=== PATIENT | female | born 1940 | race Caucasian/White ===

== ENCOUNTER → 2019-10-03 13:18 | Outpatient (CLI) | payer MEDICARE, SELFPAY ==
--- NOTE | ~2019-10-03 | CT_ITS ---
EXAMINATION: CT chest wo con DATE: 10/03/2019 13:50 INDICATION: Solitary pulmonary nodule, prior smoker TECHNIQUE: Computed tomography (CT) of the chest was performed without intravenous contrast. The dose -length product (DLP) was 480.09 mGy-cm. Automated exposure control and iterative reconstruction tech [employer] were employed. COMPARISON: 12/03/2015 FINDINGS: There is moderate emphysema. Stable pulmonary nodules are seen which measure up to 5 mm. No new or suspicious pulmonary nodule is identified. There is mild dependent atelectasis. No focal airs pace opacities are identified. There is no pleural effusion or pneumothorax. Calcified bilateral eliseo st implants are noted. No pathologically enlarged thoracic lymph nodes are identified. The heart size is normal. Calcified coronary artery atherosclerosis is noted. Cysts of the liver measure up to 2.1 cm. There is moderate thoracic spondylosis. IMPRESSION: 1. Stable pulmonary nodules, consistent with old granulomatous disease. 2. Moderate emphysema. Reviewed, dictated and finalized at location A. KER STOCKER
== END ==
PROVIDERS: PCP Internal Medicine; Visit Provider Internal Medicine
DX: J43.9 Emphysema, unspecified (principal); R91.8 Other nonspecific abnormal finding of lung field
CPT/HCPCS: 71250

== ENCOUNTER 2019-10-23 14:46 | Emergency (ER) | payer MEDICARE, SELFPAY ==
--- NOTE | ~2019-10-23 | CT_ITS ---
EXAMINATION: CT abdomen pelvis w con EXAM DATE: 10/23/2019 18:13 INDICATION: Nausea and vomiting with elevated lipase. TECHNIQUE: Spiral CT of the abdomen and pelvis was performed following intravenous injection of 100 m L Omnipaque 350. Axial, coronal and sagittal images were reviewed. The dose-length product (DLP) fo r this examination was 746.90 mGy-cm. The exposure was tailored according to patient size (auto mA e xposure control), and iterative reconstruction (ASIR) was used as additional dose reduction technique . There is no prior study for comparison. FINDINGS: The largest liver cyst is in the left liver lobe medial segment, measures 2.3 cm. The sple en, pancreas, and adrenal glands are unremarkable. Gallbladder is unremarkable. No biliary obstruct ion. Portal and splenic veins are patent. Kidneys enhance symmetrically. There is no hydronephrosi s. There are small renal cysts bilaterally. The uterus is not identified and has likely been surgica lly resected. The bladder is unremarkable. There is no retroperitoneal or pelvic lymphadenopathy. There is mild to moderate scattered arteriosclerotic disease. The appendix is not positively visualized. There is no pericecal inflammatory change to suggest appe ndicitis. The stomach and small bowel are unremarkable. There is expected amount of colonic stool. No free intraperitoneal gas. The heart is normal in size. There are no pericardial or pleural e ffusions. Mild basilar bronchiectasis and bilateral subsegmental atelectasis. Bilateral breast impla nts with capsular calcification, retraction. There are no osteoblastic or osteolytic lesions identif ied. IMPRESSION: 1. No acute intra-abdominal findings. Reviewed, dictated and finalized at location A. L SHOP SUPERVISOR
[2019-10-23 14:51] VITALS: BP 121/60; PULSE 94; RESP 18; TEMP 37.1; O2SAT 90
--- NOTE | 2019-10-23 14:57 | ED.NAVMDI ---
HPI - Nausea/Vomiting/Diarrhea General Chief complaint: Nausea/Vomiting/Diarrhea Stated complaint: n/v Time Seen by Provider: 10/23/19 14:53 Source: patient and RN notes reviewed Mode of arrival: ambulatory Limitations: dementia History of Present Illness HPI Narrative: A 79 y/o female presents to the ED with N/V beginning this morning. She states that she has had 2 episodes of vomiting and that has been having some mild diarrhea and nasal congestion. She denies any ABD pain, fevers, chills, SOB, CP, cough, or GONZALEZ. MD elicited complaint: nausea, vomiting (x2) and diarrhea (mild) Onset (ago): hour(s) (this morning) Associated abdominal pain: No Location of pain: none Associated symptoms: other (nasal congestion) Related Data Home Medications Medication Instructions Recorded Confirmed fexofenadine 60 mg-pseudoephedrine 1 tablet PO Q12H PRN 09/25/19 ER 120 mg tablet,ext.release,12 hr fluticasone propionate 50 2 spray NASAL DAILY 09/25/19 mcg/actuation nasal spray,suspension levothyroxine 75 mcg tablet 75 mcg PO DAILY 09/25/19 triamcinolone acetonide 0.1 % 1 applic TOPICAL BID 09/25/19 topical cream Allergies Allergy/AdvReac Type Severity Reaction Status Date / Time KYLAH Inhibitors Allergy Unknown Cough Verified 10/23/19 15:10 Review of Systems Review of Systems: All systems reviewed & are unremarkable except as noted in HPI and below Constitutional: Constitutional: Denies chills and Denies fever(s) ENT: Reports nasal congestion Cardiovascular: Cardiovascular: Denies chest pain Respiratory: Respiratory: Denies cough and Denies dyspnea Gastrointestinal: Gastrointestinal: Denies abdominal pain, Reports diarrhea ( mild), Reports nausea and Reports vomiting (x2) Neurologic: Denies headache(s) [facility] Past Medical History Medical History (Updated 10/23/19 @ 18:36 by Livan Capellan MD) Benign essential hypertension BMI 35.0-35.9,adult Chronic sinusitis Cognitive dysfunction Elevated homocysteine H/O: HTN (hypertension) Hearing loss Hyperlipidemia Hypothyroidism (acquired) Left-sided thoracic back pain Lung nodule On intermediate drug therapy Osteoporosis Pre-diabetes Vitamin D deficiency Surgical History Surgical History Surgical history unknown Family History Family History Sibling Patient's sister is in good health Patient's brother is in good health Father Family history of cardiovascular disease Acute myocardial infarction Mother Family history of malignant neoplasm Family history of malignant neoplasm of breast in first degree relative Social History Social History Smoking status: Former smoker Smoking end date: 1938 Alcohol intake: never Gender identity (if verbalized by the patient): Female Exam Const: General: healthy appearing, no acute distress and other (elderly and frail) HENMT: Mouth: Yes lip normal and Yes moist mucous membranes Eyes: Conjunctivae: conjunctivae normal Pupils: Equal, round and reactive pupils present Resp: Effort & Inspection: normal respiratory effort Auscultation: clear to auscultation bilaterally Cardio: Rate: regular rate Rhythm: regular rhythm Heart sounds: no murmurs GI: GI Palp: Yes Soft to palpation and No Tenderness to palpation present (GI) Auscultation: normal bowel sounds Back/Spine/Pelvis: Other: Full ROM. Skin: General skin exam: normal color, dry skin and other (warm) Neuro: General: patient oriented x3 (alert) Speech: normal speech Extrem: General: full ROM Psych: Mental Status: mental status grossly normal Affect: normal affect Course Vital Signs Vital signs: Vital Signs Temperature 37.1 C 10/23/19 14:51 Pulse Rate 94 10/23/19 14:51 Respiratory Rate 18 10/23/19 14:51 Blood Pressure 121/60 10/23/19 14:51 Pulse Oximetry 90 10/23/19 14:5
[2019-10-23] MEDS: ONDANSETRON INJ 4 MG/2 ML VIAL IV PUSH (15:13)
[2019-10-23] MEDS: SODIUM CHLORIDE 0.9% IV 500 ML 999 ML IV CONT (15:13)
[2019-10-23 15:39] LABS: Basophils Percent Auto 0.5 % (0.2-1.2); Eosinophils Percent Auto 0.3 % (0-4.4); Hematocrit 44.9 % (37.0-47.0); Hemoglobin 14.6 g/dL (12.0-15.0); Immature Granulocyte Absolute 0.03 K/mm3 (0.00-0.031); Immature Granulocyte Percent A 0.5 % (0-0.5); Lymphocytes Absolute Auto 1.52 K/mm3 (0.9-3.2); Lymphocytes Percent Auto 25.2 % (18.3-44.2); Mean Corpuscular HGB Conc 32.5 g/dl (32-36); Mean Corpuscular Hemoglobin 30.6 pg (26-34); Mean Corpuscular Volume 94.1 fl (80-100); Mean Platelet Volume 10.5 fl (7.4-10.4); Monocytes Absolute Auto 0.3 K/mm3 (0.1-0.6); Monocytes Percent Auto 5.6 % (2.6-8.5); Neutrophils Absolute Auto 4.1 K/mm3 (1.3-6.7); Neutrophils Percent Auto 67.9 % (45.5-73.1); Platelet Count Result 182 k/mm3 (150-375); Red Blood Count 4.77 M/mm3 (4.2-5.4); Red Cell Distribution Width 12.7 % (11.5-14.5)
[2019-10-23 16:16] VITALS: BP 124/74; BP 139/80; BP 144/95; PULSE 79; PULSE 89; PULSE 96
[2019-10-23 16:17] LABS: Alanine Aminotransferase 24 U/L (4-35); Alkaline Phosphatase 68 U/L (38-126); Aspartate Amino Transferase 40 U/L (14-36); Bilirubin,Total 0.6 mg/dL (0.2-1.3); Blood Urea Nitrogen 19 mg/dL (7-17); Calcium 8.2 mg/dL (8.4-10.2); Carbon Dioxide 24 mmol/L (22-30); Chloride 104 mmol/L (98-107); Estimated CRCL calculation 64 ml/min; Estimated Glomerular Filt Rate > 60; Glucose 124 mg/dL (65-105); Lipase 956 U/L (23-300); Potassium 3.6 mmol/L (3.4-5.0); Sodium 137 mmol/L (137-145)
[2019-10-23 16:55] LABS: Add Urine Microscopic? YES; Appearance Urine Clear (Clear); Bacteria Urine Trace /hpf; Bilirubin Urine Negative (Negative); Blood Urine 2+ (Negative); Color Urine Yellow (Yellow); Glucose Urine UA Negative (Negative); Ketones Urine Trace mg/dL (Negative); Leukocyte Esterase Ur Negative LEU/UL (Negative); Mucus Urine Rare /lpf; Nitrate Urine Negative (Negative); Protein Urine Negative (Negative); Specific Grav Ur 1.016 (1.001-1.035); Squamous Epithelial Cell Urine Rare /hpf (Few); Urobilinogen Urine Negative mg/dL (<2.0); WBC Urine 0-3 /hpf
[2019-10-23 16:59] VITALS: BP 140/77; PULSE 83; RESP 16; O2SAT 92
[2019-10-23 17:55] VITALS: BP 140/75; PULSE 95; RESP 16; O2SAT 92
--- NOTE | 2019-10-23 18:46 | PC.NURSE ---
md aware of frequent low 02 sats below 90%. md declines to use o2 nasal cannula at this time. when awake pt has o2 sats 90-95%
[2019-10-23 19:13] VITALS: BP 126/82; PULSE 99; RESP 16; TEMP 37.2; O2SAT 90
== END 2019-10-23 19:31 | disposition home or self-care (01) ==
PROVIDERS: Emergency Provider Emergency Medicine; PCP Internal Medicine
DX: R11.2 Nausea with vomiting, unspecified (principal); I10 Essential (primary) hypertension; E78.5 Hyperlipidemia, unspecified; E03.9 Hypothyroidism, unspecified; M81.0 Age-related osteoporosis without current pathological fracture; R73.03 Prediabetes; E55.9 Vitamin D deficiency, unspecified
CPT/HCPCS: 36415; 74177; 80053; 81001; 83690; 85025; 96361; 96365; 96375; 99284; J0131; J2405; J7040; Q9967

== ENCOUNTER 2019-10-24 12:24 | Emergency (ER) | payer MEDICARE, SELFPAY ==
[2019-10-24 14:23] VITALS: BP 130/71; PULSE 80; RESP 20; TEMP 37.7; O2SAT 97
[2019-10-24 14:45] LABS: Basophils Percent Auto 0.3 % (0.2-1.2); Eosinophils Percent Auto 0.2 % (0-4.4); Hemoglobin 13.9 g/dL (12.0-15.0); Immature Granulocyte Absolute 0.03 K/mm3 (0.00-0.031); Immature Granulocyte Percent A 0.3 % (0-0.5); Lymphocytes Absolute Auto 1.43 K/mm3 (0.9-3.2); Lymphocytes Percent Auto 16.5 % (18.3-44.2); Mean Corpuscular HGB Conc 33.1 g/dl (32-36); Mean Corpuscular Hemoglobin 30.5 pg (26-34); Mean Corpuscular Volume 92.1 fl (80-100); Monocytes Absolute Auto 0.8 K/mm3 (0.1-0.6); Monocytes Percent Auto 9.6 % (2.6-8.5); Neutrophils Absolute Auto 6.3 K/mm3 (1.3-6.7); Neutrophils Percent Auto 73.1 % (45.5-73.1); Platelet Count Result 193 k/mm3 (150-375); Red Blood Count 4.56 M/mm3 (4.2-5.4); Red Cell Distribution Width 12.6 % (11.5-14.5); White Blood Count 8.7 K/mm3 (4.5-10.0)
[2019-10-24 14:54] LABS: Alanine Aminotransferase 25 U/L (4-35); Albumin Level 4.1 g/dL (3.5-5.1); Alkaline Phosphatase 70 U/L (38-126); Aspartate Amino Transferase 42 U/L (14-36); Bilirubin,Total 0.6 mg/dL (0.2-1.3); Blood Urea Nitrogen 17 mg/dL (7-17); Calcium 8.9 mg/dL (8.4-10.2); Carbon Dioxide 27 mmol/L (22-30); Chloride 97 mmol/L (98-107); Estimated CRCL calculation 47 ml/min; Estimated Glomerular Filt Rate > 60; Glucose 111 mg/dL (65-105); Lipase 137 U/L (23-300); Potassium 4.1 mmol/L (3.4-5.0); Sodium 136 mmol/L (137-145)
--- NOTE | 2019-10-24 15:40 | ED.GENADULT ---
HPI - General Adult General Chief complaint: Weakness Stated complaint: gen weakness/n Time Seen by Provider: 10/24/19 15:21 Source: patient and old records reviewed Mode of arrival: ambulatory Limitations: no limitations History of Present Illness HPI narrative: Patient is an 79-year-old female who presents to emergency department for evaluation after being instructed to come to the emergency department by primary care patient was evaluated yesterday for nausea and vomiting which has improved since discharge noting that she had 1 small episode of emesis today patient on arrival to emergency department denies any pain or complaints patient presents with family patient was found to have incidentally elevated faded lipase had CAT scan and was given a liter of fluid yesterday patient with normalized blood work today currently denying any nausea or vomiting resting comfortably in the room in no distress Related Data Home Medications Medication Instructions Recorded Confirmed levothyroxine 75 mcg tablet 75 mcg PO DAILY 09/25/19 donepezil 2.5 mg PO HS 10/24/19 10/24/19 Allergies Allergy/AdvReac Type Severity Reaction Status Date / Time KYLAH Inhibitors Allergy Unknown Cough Verified 10/24/19 15:49 Review of Systems Review of Systems: All systems reviewed & are unremarkable except as noted in HPI and below PMFSH Past Medical History Medical History Benign essential hypertension BMI 35.0-35.9,adult Chronic sinusitis Cognitive dysfunction Elevated homocysteine H/O: HTN (hypertension) Hearing loss Hyperlipidemia Hypothyroidism (acquired) Left-sided thoracic back pain Lung nodule On terminologist drug therapy Osteoporosis Pre-diabetes Vitamin D deficiency Surgical History Surgical History Surgical history unknown Social History Social History Smoking status: Former smoker Smoking end date: 1938 Alcohol intake: never Gender identity (if verbalized by the patient): Female Exam Narrative: Exam Narrative: GENERAL: Well-appearing, well-nourished, and in no acute distress. HEAD: Normocephalic, atraumatic. EYES: PERRLA and EOMI. ENT: Nares clear, no rhinorrhea or epistaxis. Mucous membranes moist. Oropharynx without tonsillar hypertrophy exudate or other lesions. CHEST: Clear to auscultation. No respiratory distress. No wheezes rales or rhonchi HEART: Regular rate and rhythm. No murmur heard. Normal peripheral pulses. ABDOMEN: Soft, nontender, nondistended EXTREMITIES: Normal range of motion. No edema. SKIN: Warm, dry, no rash. NEURO: No focal deficits. Alert and oriented x3. PSYCH: Normal mood and affect. Course Course Emergency Course: Patient in the room in no distress aware of case findings treatment plan and diagnosis agreeing to follow-up as directed or to return if symptoms worsen or concerns Vital Signs Vital signs: Vital Signs Temperature 99.9 F H 10/24/19 14:23 Pulse Rate 80 10/24/19 14:23 Respiratory Rate 20 10/24/19 14:23 Blood Pressure 130/71 10/24/19 14:23 Pulse Oximetry 97 10/24/19 14:23 Temperature 99.9 F H 10/24/19 14:23 Pulse Rate 90 10/24/19 15:48 Respiratory Rate 20 10/24/19 14:23 Blood Pressure 144/79 H 10/24/19 15:48 Pulse Oximetry 97 10/24/19 14:23 Medical Decision Making MDM Narrative Medical decision making narrative: Patient in the room in no distress was hydrated resting comfortably in the room no complaints nontender abdomen was hydrated and felt appropriate for outpatient reevaluation patient prefers to go home will follow with primary care and was provided with reasons to return Vital Signs Vital Signs: Vital Signs Temperature 99.9 F H 10/24/19 14:23 Pulse Rate 80 10/24/19 14:23 Respiratory Rate 20 10/24/19 14:23 Blood Pressure 130/71 10/24/19 14:23 P
[2019-10-24 15:48] VITALS: BP 130/78; BP 133/72; BP 144/79; PULSE 85; PULSE 89; PULSE 90
[2019-10-24] MEDS: SODIUM CHLORIDE 0.9% IV 1,000 ML 999 ML IV CONT (16:21)
[2019-10-24] MEDS: FAMOTIDINE 20 MG/2 ML VIAL IV PUSH (16:22)
[2019-10-24 16:43] LABS: Add Urine Microscopic? YES; Appearance Urine Clear (Clear); Bilirubin Urine Negative (Negative); Blood Urine 1+ (Negative); Color Urine Straw (Yellow); Glucose Urine UA Negative (Negative); Ketones Urine Trace mg/dL (Negative); Leukocyte Esterase Ur Negative LEU/UL (Negative); Nitrate Urine Negative (Negative); Protein Urine Negative (Negative); Specific Grav Ur 1.016 (1.001-1.035); Squamous Epithelial Cell Urine Rare /hpf (Few); Urobilinogen Urine Negative mg/dL (<2.0); WBC Urine 0-3 /hpf
== END 2019-10-24 17:55 | disposition home or self-care (01) ==
PROVIDERS: Emergency Medicine; Emergency Provider Emergency Medicine; PCP Internal Medicine
DX: R11.2 Nausea with vomiting, unspecified (principal); I10 Essential (primary) hypertension; E78.00 Pure hypercholesterolemia, unspecified; E03.9 Hypothyroidism, unspecified; M81.0 Age-related osteoporosis without current pathological fracture; R73.03 Prediabetes; E55.9 Vitamin D deficiency, unspecified; Z87.891 Personal history of nicotine dependence
CPT/HCPCS: 36415; 80053; 81001; 83690; 85025; 87804; 96361; 96374; 99284; J7030

== ENCOUNTER 2020-03-29 04:04 | Emergency (ER) | payer MEDICARE, SELFPAY ==
--- NOTE | 2020-03-29 | ECG_ITS ---
Measurements Intervals [place] Rate: 100 P: 53 WI: 154 QRS: -11 QRSD: 94 T: 38 QT: 366 QTc: 474 Interpretive Statements SINUS TACHYCARDIA FREQUENT VENTRICULAR PREMATURE COMPLEXES INCOMPLETE RIGHT BUNDLE BRANCH BLOCK BASELINE ARTIFACT- I, III, AVR, AVL, AVF, V4 ABNORMAL ECG Electronically Signed On 04-02-2020 13:02:06 CDT by Florian Muhammad D.O.
--- NOTE | ~2020-03-29 | CT_ITS ---
EXAMINATION: CT brain wo con DATE: 03/29/2020 04:34 INDICATION: Dizziness and confusion TECHNIQUE: Computed tomography (CT) of the head was performed without intravenous contrast. Sagittal and coronal reconstructions were performed. Automated exposure control and iterative reconstruction t echnique were employed. The dose-length product was 605.33 mGy-cm. COMPARISON: head CT dated 09/02/2016 FINDINGS: No acute intracranial hemorrhage, acute infarction or abnormal extra axial fluid collection. There is mild scattered white matter hypoattenuation consistent with chronic small vessel ischemic disease. S ymmetric prominence of the sulci consistent with mild age-appropriate diffuse cerebral volume loss. V entricles are normal and symmetric. No mass/mass effect. Changes of bilateral intraocular lens replac ement. The orbits, paranasal sinuses and mastoid air cells are normal. Intracranial calcified cerebra l atherosclerosis is noted. IMPRESSION: 1. No acute intracranial process. 2. Age-related changes including mild diffuse volume loss and mild scattered white matter hypoattenua tion consistent with chronic small vessel ischemic disease. Reviewed, dictated and finalized at location A. IMPRESSION: 1. No acute intracranial process. 2. Age-related changes including mild diffuse volume loss and mild scattered wh ite matter hypoattenuation consistent with chronic small vessel ischemic diseas e.
[2020-03-29 04:05] VITALS: BP 161/77; PULSE 99; RESP 20; TEMP 37.1; O2SAT 100
--- NOTE | 2020-03-29 04:18 | ED.DIZZY ---
HPI - Dizziness General Chief Complaint: Dizziness Stated Complaint: dizzy History of Present Illness HPI Narrative: Patient presents with dizziness last night and then when she woke up just now. She arrives via EMS. She said the dizziness is gone here. She dropped her little poodle off with the neighbors before coming. She is disoriented thinking it is 2018. She lives alone. She takes care of her own bills. She has no pain. She has not been sick. She takes medication for blood pressure. MD elicited complaint: dizziness Onset (ago): day(s) Timing: gradual onset and awoke with symptoms Severity: mild Exacerbating factors: nothing Relieving factors: other (Getting out of the house) Associated symptoms: denies other symptoms Related Data Home Medications Medication Instructions Recorded Confirmed levothyroxine 75 mcg tablet 75 mcg PO DAILY 09/25/19 10/26/19 Allergies Allergy/AdvReac Type Severity Reaction Status Date / Time KYLAH Inhibitors Allergy Unknown Cough Verified 03/29/20 04:17 Review of Systems Review of Systems: Narrative: CONSTITUTIONAL: Denies fever, chills, or sweats. EYES: Denies visual changes, redness, or discharge. ENT: Denies rhinorrhea, congestion, sore throat, or otalgia. CARDIOVASCULAR: Denies chest pain, palpitations, or edema. RESPIRATORY: Denies cough or dyspnea. GASTROINTESTINAL: Denies abdominal pain, nausea, vomiting, or diarrhea. GENITOURINARY: Denies dysuria or hematuria. SKIN: Denies rash or itching. MUSCULOSKELETAL: Denies back pain, joint pain, or myalgia. NEUROLOGIC: Denies headache, numbness, or weakness. Dizziness is resolved here. All systems reviewed & are unremarkable except as noted in HPI and below [facility] Past Medical History Medical History Benign essential hypertension BMI 35.0-35.9,adult Chronic sinusitis Cognitive dysfunction Dyspnea on exertion Elevated homocysteine H/O: HTN (hypertension) Hearing loss Hyperlipidemia Hypothyroidism (acquired) Left-sided thoracic back pain Lung nodule On half-way drug therapy Osteoporosis Pre-diabetes Vitamin D deficiency Surgical History Surgical History Surgical history unknown Social History Social History Smoking packs per day: 1 Smoking cigarettes per day: 20.0 Years smoked: 30 Smoking pack-years: 30.00 Smoking status: Former smoker Alcohol intake: never Gender identity (if verbalized by the patient): Female Exam Narrative: Exam Narrative: GENERAL: Well-appearing, well-nourished, and in no acute distress. HEAD: Normocephalic, atraumatic. EYES: PERRLA and EOMI. ENT: Nares clear, no rhinorrhea or epistaxis. Mucous membranes moist. NECK: Supple. CHEST: Clear to auscultation. No respiratory distress. Breast implants HEART: Regular rate and rhythm. No murmur heard. Normal peripheral pulses. ABDOMEN: Soft, nontender, nondistended, normal active bowel sounds. EXTREMITIES: Normal range of motion. No edema. SKIN: Warm, dry, no rash. NEURO: No focal deficits. Alert and oriented x2. PSYCH: Normal mood and affect. Good humor Course Vital Signs Vital signs: Vital Signs Temperature 98.7 F 03/29/20 04:05 Pulse Rate 99 03/29/20 04:05 Respiratory Rate 20 03/29/20 04:05 Blood Pressure 161/77 H 03/29/20 04:05 Pulse Oximetry 100 03/29/20 04:05 Temperature 98.7 F 03/29/20 04:05 Pulse Rate 94 03/29/20 05:54 Respiratory Rate 20 03/29/20 05:54 Blood Pressure 173/92 H 03/29/20 05:54 Pulse Oximetry 98 03/29/20 05:54 MDM - Dizziness Medical Records Attestation: I reviewed the patient's medical records. Lab Data Attestation: I reviewed the patient's lab results. Result diagrams: 03/29/20 04:56 03/29/20 04:56 Labs: Lab Results 03/29/20 03/29/20 03/29/20 Range/Units 04:56 04
[2020-03-29 04:47] VITALS: BP 173/92; PULSE 89; RESP 20; O2SAT 98
--- NOTE | 2020-03-29 05:01 | PC.NURSE ---
PT AMBULATED TO BATHROOM WITH STEADY GAIT. DENIES DIZZINESS
[2020-03-29 05:04] LABS: Basophils Percent Auto 0.6 % (0.2-1.2); Eosinophils Absolute Auto 0.2 K/mm3 (0-0.3); Eosinophils Percent Auto 3.1 % (0-4.4); Hematocrit 44.5 % (37.0-47.0); Hemoglobin 14.6 g/dL (12.0-15.0); Immature Granulocyte Absolute 0.02 K/mm3 (0.00-0.031); Immature Granulocyte Percent A 0.3 % (0-0.5); Lymphocytes Absolute Auto 1.44 K/mm3 (0.9-3.2); Lymphocytes Percent Auto 22.1 % (18.3-44.2); Mean Corpuscular HGB Conc 32.8 g/dl (32-36); Mean Corpuscular Hemoglobin 31.1 pg (26-34); Mean Corpuscular Volume 94.9 fl (80-100); Mean Platelet Volume 10.6 fl (7.4-10.4); Monocytes Absolute Auto 0.7 K/mm3 (0.1-0.6); Monocytes Percent Auto 10.3 % (2.6-8.5); Neutrophils Absolute Auto 4.2 K/mm3 (1.3-6.7); Neutrophils Percent Auto 63.6 % (45.5-73.1); Platelet Count Result 150 k/mm3 (150-375); Red Blood Count 4.69 M/mm3 (4.2-5.4); Red Cell Distribution Width 12.9 % (11.5-14.5); White Blood Count 6.5 K/mm3 (4.5-10.0)
[2020-03-29 05:16] LABS: Alanine Aminotransferase 26 U/L (4-35); Albumin Level 4.2 g/dL (3.5-5.1); Alkaline Phosphatase 85 U/L (38-126); Anion Gap 7 mmol/L (8-16); Aspartate Amino Transferase 48 U/L (14-36); Bilirubin,Total 0.6 mg/dL (0.2-1.3); Blood Urea Nitrogen 25 mg/dL (7-17); Calcium 8.9 mg/dL (8.4-10.2); Carbon Dioxide 24 mmol/L (22-30); Chloride 107 mmol/L (98-107); Estimated Glomerular Filt Rate 53; Glucose 110 mg/dL (65-105); Potassium 4.1 mmol/L (3.4-5.0); Sodium 138 mmol/L (137-145)
[2020-03-29 05:19] LABS: Add Urine Microscopic? YES; Appearance Urine Clear (Clear); Bilirubin Urine Negative (Negative); Blood Urine 1+ (Negative); Color Urine Yellow (Yellow); Glucose Urine UA Negative (Negative); Ketones Urine Negative (Negative); Leukocyte Esterase Ur Negative LEU/UL (Negative); Nitrate Urine Negative (Negative); Protein Urine Negative (Negative); Specific Grav Ur 1.018 (1.001-1.035); Urobilinogen Urine Negative mg/dL (<2.0); WBC Urine 0-3 /hpf
[2020-03-29 05:31] LABS: Amphetamine Screen Urine Negative (Negative); Barbiturate Screen Urine Negative (Negative); Benzodiazepines Screen Urine Negative (Negative); Cannabinoid Screen Urine Negative (Negative); Cocaine Screen Urine Negative (Negative); Methadone Screen Urine Negative (Negative); Opiate Screen Urine Negative (Negative); Phencyclidine Screen Urine Negative (Negative)
[2020-03-29 05:37] VITALS: BP 173/92; PULSE 96; RESP 20; O2SAT 98
[2020-03-29 05:54] VITALS: BP 173/92; PULSE 94; RESP 20; O2SAT 98
== END 2020-03-29 05:57 | disposition home or self-care (01) ==
PROVIDERS: Emergency Provider Emergency Medicine; PCP Internal Medicine
DX: R42 Dizziness and giddiness (principal); R41.0 Disorientation, unspecified; I10 Essential (primary) hypertension; E78.5 Hyperlipidemia, unspecified; E03.9 Hypothyroidism, unspecified; M81.0 Age-related osteoporosis without current pathological fracture; E55.9 Vitamin D deficiency, unspecified; R73.03 Prediabetes; Z79.899 Other long term (current) drug therapy
CPT/HCPCS: 36415; 70450; 80053; 80307; 81001; 85025; 93005; 99284

== ENCOUNTER 2020-04-01 14:05 | Outpatient (CLI) | payer MEDICARE, SELFPAY ==
[2020-04-01 15:20] LABS: Alanine Aminotransferase 25 U/L (4-35); Albumin Level 4.1 g/dL (3.5-5.1); Alkaline Phosphatase 72 U/L (38-126); Anion Gap 7 mmol/L (8-16); Aspartate Amino Transferase 47 U/L (14-36); Bilirubin,Total 0.3 mg/dL (0.2-1.3); Blood Urea Nitrogen 23 mg/dL (7-17); Calcium 9.2 mg/dL (8.4-10.2); Carbon Dioxide 24 mmol/L (22-30); Chloride 106 mmol/L (98-107); Estimated Glomerular Filt Rate 53; Glucose 90 mg/dL (65-105); Potassium 4.4 mmol/L (3.4-5.0); Sodium 137 mmol/L (137-145)
[2020-04-01 15:24] LABS: Hemoglobin A1C 5.8 % (<5.7)
[2020-04-01 15:54] LABS: Free T4 Free Thyroxine 1.22 ng/mL (0.78-2.19)
[2020-04-01 16:24] LABS: Folic Acid 12.3 ng/mL (2.76->20)
[2020-04-04 03:49] LABS: Methylmalonic Acid 168 nmol/L (87-318)
== END 2020-04-01 14:06 | disposition home or self-care (01) ==
PROVIDERS: PCP Internal Medicine; Visit Provider Internal Medicine
DX: E78.5 Hyperlipidemia, unspecified (principal); I10 Essential (primary) hypertension; Z79.899 Other long term (current) drug therapy
CPT/HCPCS: 36415; 80053; 82607; 82746; 83036; 83921; 84439; 84443

== ENCOUNTER 2020-12-17 16:18 | Outpatient (CLI) | payer MEDICARE, SELFPAY ==
[2020-12-17 16:47] LABS: Basophils Absolute Auto 0.1 K/mm3 (0.0-0.1); Eosinophils Absolute Auto 0.3 K/mm3 (0-0.3); Eosinophils Percent Auto 4.9 % (0-4.4); Hematocrit 44.5 % (37.0-47.0); Hemoglobin 14.6 g/dL (12.0-15.0); Immature Granulocyte Absolute 0.02 K/mm3 (0.00-0.031); Immature Granulocyte Percent A 0.3 % (0-0.5); Lymphocytes Absolute Auto 2.03 K/mm3 (0.9-3.2); Lymphocytes Percent Auto 34.4 % (18.3-44.2); Mean Corpuscular HGB Conc 32.8 g/dl (32-36); Mean Corpuscular Hemoglobin 30.8 pg (26-34); Mean Corpuscular Volume 93.9 fl (80-100); Mean Platelet Volume 9.4 fl (7.4-10.4); Monocytes Absolute Auto 0.7 K/mm3 (0.1-0.6); Monocytes Percent Auto 12.4 % (2.6-8.5); Neutrophils Absolute Auto 2.8 K/mm3 (1.3-6.7); Platelet Count Result 207 k/mm3 (150-375); Red Blood Count 4.74 M/mm3 (4.2-5.4); Red Cell Distribution Width 13.9 % (11.5-14.5); White Blood Count 5.9 K/mm3 (4.5-10.0)
[2020-12-17 16:59] LABS: Alanine Aminotransferase 31 U/L (4-35); Albumin Level 4.6 g/dL (3.5-5.1); Alkaline Phosphatase 114 U/L (38-126); Anion Gap 6 mmol/L (8-16); Aspartate Amino Transferase 51 U/L (14-36); Bilirubin,Total 0.3 mg/dL (0.2-1.3); Blood Urea Nitrogen 33 mg/dL (7-17); Calcium 9.5 mg/dL (8.4-10.2); Carbon Dioxide 28 mmol/L (22-30); Chloride 107 mmol/L (98-107); Cholesterol 208 mg/dL (0-200); Estimated Glomerular Filt Rate 60; Glucose 103 mg/dL (65-105); HDL Direct 81 mg/dL; Potassium 4.7 mmol/L (3.4-5.0); Sodium 141 mmol/L (137-145); Triglycerides 114 mg/dL (<150)
[2020-12-17 17:10] LABS: LDL Cholesterol Direct 121 mg/dL
[2020-12-17 17:40] LABS: Free T4 Free Thyroxine 1.09 ng/mL (0.78-2.19); Vitamin D 25 Hydroxy 39.9 ng/mL
[2020-12-17 18:04] LABS: Folic Acid 19.8 ng/mL (2.76->20)
[2020-12-18 21:52] LABS: Hemoglobin A1C 6.1 % (<5.7)
[2020-12-21 11:29] LABS: Vitamin B1 18 nmol/L (8-30)
[2020-12-23 05:02] LABS: Vitamin B6 55.3 ng/mL (2.1-21.7)
[2020-12-23 14:55] LABS: Vitamin B2 23.1 nmol/L (6.2-39.0)
== END 2020-12-17 16:19 | disposition home or self-care (01) ==
LOC: ANHLAB 16:24
PROVIDERS: PCP Internal Medicine; Visit Provider Internal Medicine
DX: F09 Unspecified mental disorder due to known physiological condition (principal); I10 Essential (primary) hypertension; R73.03 Prediabetes; Z79.899 Other long term (current) drug therapy; E78.2 Mixed hyperlipidemia; E03.9 Hypothyroidism, unspecified; E55.9 Vitamin D deficiency, unspecified
CPT/HCPCS: 36415; 80053; 80061; 82172; 82306; 82607; 82746; 83036; 84207; 84252; 84425; 84439; 84443; 85025

== ENCOUNTER 2021-06-03 11:09 | Outpatient (CLI) | payer MEDICARE, SELFPAY ==
[2021-06-03 11:56] LABS: Alanine Aminotransferase 28 U/L (4-35); Albumin Level 4.9 g/dL (3.5-5.1); Alkaline Phosphatase 71 U/L (38-126); Anion Gap 12 mmol/L (8-16); Aspartate Amino Transferase 50 U/L (14-36); Bilirubin,Total 1.3 mg/dL (0.2-1.3); Blood Urea Nitrogen 15 mg/dL (7-17); Calcium 9.4 mg/dL (8.4-10.2); Carbon Dioxide 21 mmol/L (22-30); Chloride 104 mmol/L (98-107); Cholesterol 224 mg/dL (0-200); Estimated Glomerular Filt Rate 60; Glucose 131 mg/dL (65-110); HDL Direct 78 mg/dL; Potassium 4.6 mmol/L (3.4-5.0); Sodium 137 mmol/L (137-145); Triglycerides 94 mg/dL (<150)
[2021-06-03 12:03] LABS: LDL Cholesterol Direct 130 mg/dL
[2021-06-03 16:27] LABS: Free T4 Free Thyroxine 1.15 ng/mL (0.78-2.19); Vitamin D 25 Hydroxy 40.2 ng/mL
== END 2021-06-03 11:10 | disposition home or self-care (01) ==
PROVIDERS: PCP Internal Medicine; Visit Provider Internal Medicine
DX: E55.9 Vitamin D deficiency, unspecified (principal); R73.03 Prediabetes; I10 Essential (primary) hypertension; E03.9 Hypothyroidism, unspecified; E78.2 Mixed hyperlipidemia
CPT/HCPCS: 36415; 80053; 80061; 82306; 83036; 84439; 84443

== ENCOUNTER 2021-09-01 14:44 | Outpatient (CLI) | payer MEDICARE, SELFPAY ==
--- NOTE | ~2021-09-01 | MR_ITS ---
EXAMINATION: MR brain/brain stem wo con DATE: 09/01/2021 16:02 INDICATION: Altered mental status, unspecified. Confusion. TECHNIQUE: Magnetic resonance imaging (MRI) of the brain and brainstem was performed without intraven ous contrast. Sequences included sagittal and axial T1-weighted FSE, axial diffusion-weighted FS EPI, axial T2*-weighted GRE, axial T2-weighted FLAIR Propeller, and axial T2-weighted Propeller. Apparent diffusion coefficient (ADC) maps were created. COMPARISON: Head CT 03/29/2020 FINDINGS: There are scattered areas of nonspecific increased T2-weighted signal intensity in the cere bral white matter, which is within normal limits for the patient's age. There is no intracranial hemo rrhage, acute infarction, or abnormal intracranial mass lesion. The ventricles are normal in size. Th ere is mild mucosal thickening in the paranasal sinuses. There are likely changes of ocular lens repl acement surgeries. The mastoid air cells are normal. IMPRESSION: 1. Normal aging brain. Reviewed, dictated and finalized at location B. T PROTECTION AGENT IMPRESSION: 1. Normal aging brain.
== END 2021-09-01 14:45 | disposition home or self-care (01) ==
PROVIDERS: PCP Internal Medicine; Visit Provider Internal Medicine
DX: R41.82 Altered mental status, unspecified (principal)
CPT/HCPCS: 70551

== ENCOUNTER 2021-11-03 08:24 | Observation (INO) | payer MEDICARE, SELFPAY ==
[2021-11-03] VITALS (24 sets, daily range): BP systolic 127–171; BP diastolic 70–109; PULSE 66–88; RESP 13–22; TEMP 35.9–36.9; O2SAT 92–100
--- NOTE | ~2021-11-03 | CT_ITS ---
EXAMINATION: CT chest abdomen pelvis w con DATE: 11/03/2021 09:35 INDICATION: Right chest pain. Right lower quadrant abdominal pain. TECHNIQUE: Computed tomography (CT) of the chest, abdomen, and pelvis was performed with 100 mL Omnip aque 350 intravenous contrast. Automated exposure control and iterative reconstruction technique were employed. The dose-length product was 1710.95 mGy-cm. COMPARISON: CT abdomen and pelvis 10/23/2019 FINDINGS: CHEST CT: The lungs demonstrate mild dependent atelectasis. There is septal thickening in the lungs, consistent with mild pulmonary edema. No pleural effusion. The heart size is normal. No pericardial effusion. T here are bilateral breast implants. There are acute fracture deformities of right fourth, fifth, sixt h, and seventh ribs. There are multiple chronic compression fractures in the spine. There is severe c ervical spondylosis and mild thoracic spondylosis. ABDOMEN/PELVIS CT: There are cysts in the liver measuring up to 20 mm. The gallbladder is normal. There is a 6 mm cyst i n the spleen. The pancreas and adrenal glands are normal. There are cysts in the kidneys measuring up to 1.8 cm on the left. There is a left inguinal hernia containing fat. There is diverticulosis of th e colon without evidence of diverticulitis. There are no dilated loops of bowel. The appendix is not visualized. There are no pathologically enlarged lymph nodes. There is no free intraperitoneal fluid. There is a benign bone island in right ilium. There is severe lower lumbar spondylosis. There are mu ltiple chronic compression fractures in the spine. IMPRESSION: 1. Acute fractures of right fourth-seventh ribs. 2. Mild pulmonary edema. Reviewed, dictated and finalized at location A.
--- NOTE | ~2021-11-03 | CT_ITS ---
EXAMINATION: CT brain wo con DATE: 11/03/2021 11:15 INDICATION: Confusion. Possible fall. Posterior neck pain. TECHNIQUE: Computed tomography (CT) of the head was performed without intravenous contrast. The dose- length product was 605.33 mGy-cm. Automated exposure control and iterative reconstruction technique w ere employed. COMPARISON: CT dated 03/29/2020 FINDINGS: There appears to be contrast within the intracranial vasculature. Correlate for recent prio r contrast administration. There is atherosclerosis. Brain parenchymal volume is normal for age. Ther e are scattered mild periventricular and subcortical white matter changes, most likely related to sma ll vessel ischemic disease (microangiopathy). No ventriculomegaly or midline shift. Basilar cisterns are patent. Paranasal sinuses and mastoids are pneumatized. No depressed skull fractures. No acute in tracranial hemorrhage, mass or mass effect. IMPRESSION: 1. No acute intracranial abnormality. Reviewed, dictated and finalized at location B.
--- NOTE | ~2021-11-03 | CT_ITS ---
EXAMINATION: CT cervical spine wo con DATE: 11/03/2021 11:15 INDICATION: Posterior neck pain. Fall. TECHNIQUE: Computed tomography (CT) of the cervical spine was performed without intravenous contrast. Automated exposure control and iterative reconstruction technique were employed. The dose-length pro duct was 409.83 mGy-cm. COMPARISON: Chest CT 11/03/2021 FINDINGS: There is 3 degrees levocurvature of cervical spine. Vertebral body heights are normal. Ther e is severely decreased disc height at C5-C6 and C6-C7 with endplate remodeling. The following disc l evels are specifically discussed: C2-C3: There is mild right and moderate left uncovertebral joint osteoarthritis. There is mild bilate ral facet joint osteoarthritis. There is no neural foraminal stenosis. There is no central canal sten osis. C3-C4: There is mild bilateral uncovertebral joint osteoarthritis. There is moderate bilateral facet joint osteoarthritis. There is no neural foraminal stenosis. There is no central canal stenosis. C4-C5: There is mild left uncovertebral joint osteoarthritis. There is severe bilateral facet joint o steoarthritis. There is mild left neural foraminal stenosis. There is mild central canal stenosis. C5-C6: There is moderate bilateral uncovertebral joint osteoarthritis. There is mild bilateral facet joint osteoarthritis. There is mild bilateral neural foraminal stenosis. There is mild central canal stenosis. C6-C7: There is moderate bilateral uncovertebral joint osteoarthritis. There is moderate bilateral fa cet joint osteoarthritis. There is mild left neural foraminal stenosis. There is mild central canal s tenosis. C7-T1: There is no uncovertebral joint osteoarthritis. There is mild right and moderate left facet elie int osteoarthritis. There is no neural foraminal stenosis. There is no central canal stenosis. IMPRESSION: 1. No fracture. 2. Severe cervical spondylosis. Reviewed, dictated and finalized at location A.
--- NOTE | 2021-11-03 08:32 | ECG_ITS ---
Measurements Intervals [place] Rate: 71 P: 55 HI: 161 QRS: -25 QRSD: 96 T: 20 QT: 399 QTc: 436 Interpretive Statements SINUS RHYTHM BORDERLINE LEFT AXIS DEVIATION [QRS AXIS < -20] ANTERIOR T-WAVE INVERSION, MORE NOTICEABLE THAN NOTED ON THE PRIOR EKG. PROBABLE FEMALE VARIANT, CANNOT RULE OUT ISCHEMIA COMPARED TO ECG 03/29/2020 04:13:12 THE FREQUENT PVCS HAVE RESOLVED Electronically Signed On 11-03-2021 18:32:39 CDT by Cindy Cartagena M.D.
[2021-11-03 08:38] LABS: Glucose Point of Care 134 mg/dl (65-105)
[2021-11-03 09:05] LABS: Basophils Percent Auto 0.4 % (0.2-1.2); Eosinophils Absolute Auto 0.2 K/mm3 (0-0.3); Eosinophils Percent Auto 2.1 % (0-4.4); Hematocrit 46.6 % (37.0-47.0); Hemoglobin 15.2 g/dL (12.0-15.0); Immature Granulocyte Absolute 0.03 K/mm3 (0.00-0.031); Immature Granulocyte Percent A 0.4 % (0-0.5); Lymphocytes Absolute Auto 1.03 K/mm3 (0.9-3.2); Lymphocytes Percent Auto 14.6 % (18.3-44.2); Mean Corpuscular HGB Conc 32.6 g/dl (32-36); Mean Corpuscular Hemoglobin 30.5 pg (26-34); Mean Corpuscular Volume 93.6 fl (80-100); Mean Platelet Volume 9.6 fl (7.4-10.4); Monocytes Absolute Auto 0.5 K/mm3 (0.1-0.6); Monocytes Percent Auto 6.4 % (2.6-8.5); Neutrophils Absolute Auto 5.4 K/mm3 (1.3-6.7); Neutrophils Percent Auto 76.1 % (45.5-73.1); Platelet Count Result 157 k/mm3 (150-375); Red Blood Count 4.98 M/mm3 (4.2-5.4); Red Cell Distribution Width 13.1 % (11.5-14.5); White Blood Count 7.1 K/mm3 (4.5-10.0)
[2021-11-03] MEDS: SODIUM CHLORIDE 0.9% IV 1,000 ML 999 ML IV CONT (09:06)
[2021-11-03 09:17] LABS: Alanine Aminotransferase 22 U/L (4-35); Albumin Level 4.2 g/dL (3.5-5.1); Alkaline Phosphatase 94 U/L (38-126); Anion Gap 7 mmol/L (8-16); Aspartate Amino Transferase 39 U/L (14-36); Blood Urea Nitrogen 17 mg/dL (7-17); Calcium 8.5 mg/dL (8.4-10.2); Carbon Dioxide 25 mmol/L (22-30); Chloride 105 mmol/L (98-107); Estimated CRCL calculation 14 ml/min; Estimated Glomerular Filt Rate > 60; Glucose 131 mg/dL (65-110); Lipase 228 U/L (23-300); Potassium 3.8 mmol/L (3.4-5.0); Sodium 137 mmol/L (137-145)
[2021-11-03 09:18] LABS: Lactic Acid Reflex 1.1 mmol/L (0.7-2.1)
[2021-11-03 09:29] LABS: Troponin I < 0.012 ng/mL (0.000-0.034)
--- NOTE | 2021-11-03 09:57 | PCCCNOTE ---
Call to room by Dr. Gramajo. Spoke with pt and pt's friend (Alize) concerning pt needs. Pt does not want assisted living at this time and has had a VNA visit to assess needs in the past but not currently receiving any assistance. Pt would like to make brother a POA when her current pain is better controlled. Dr. Gramajo indicated pt will be probably be admitted.
[2021-11-03 10:28] LABS: Add Urine Microscopic? NO; Appearance Urine Clear (Clear); Bilirubin Urine Negative (Negative); Blood Urine Negative (Negative); Color Urine Straw (Yellow); Glucose Urine UA Negative (Negative); Ketones Urine Negative (Negative); Leukocyte Esterase Ur Negative LEU/UL (Negative); Nitrate Urine Negative (Negative); Protein Urine Negative (Negative); Specific Grav Ur 1.023 (1.001-1.035); Urobilinogen Urine Negative mg/dL (<2.0)
[2021-11-03] MEDS: MORPHINE SULFATE (*CRX) 4 MG/ML INJ (10:38)
[2021-11-03] MEDS: ONDANSETRON INJ 4 MG/2 ML VIAL (10:39)
--- NOTE | 2021-11-03 11:08 | ED.GENADULT ---
HPI - General Adult General Chief complaint: Abdominal Pain Stated complaint: R sided flank pain Time Seen by Provider: 11/03/21 08:51 Source: patient and EMS Mode of arrival: EMS Limitations: no limitations History of Present Illness HPI narrative: Patient is 81 years old white female lives alone came by ambulance to the emergency room complaining of inability to the move today because of pain at the right chest. Patient also reports a fall 2 weeks ago. Patient friends is telling me that patient had early dementia for the last few months. Patient denies any fever, chills, nausea, vomiting. Related Data Allergies Allergy/AdvReac Type Severity Reaction Status Date / Time KYLAH Inhibitors Allergy Unknown Cough Verified 06/17/21 10:16 Review of Systems Review of Systems: CONSTITUTIONAL: Denies fever, chills, or sweats. EYES: Denies visual changes, redness, or discharge. ENT: Denies rhinorrhea, congestion, sore throat, or otalgia. CARDIOVASCULAR: Denies chest pain, palpitations, or edema. RESPIRATORY: Denies cough or dyspnea. Severe tenderness right chest with light palpation, no bruises, no swelling, no rash. Breast augmentation bilaterally GASTROINTESTINAL: Denies abdominal pain, nausea, vomiting, or diarrhea. GENITOURINARY: Denies dysuria or hematuria. SKIN: Denies rash or itching. MUSCULOSKELETAL: Denies back pain, joint pain, or myalgia. NEUROLOGIC: Denies headache, numbness, or weakness. PSYCHIATRIC: Anxiety and depression [facility] Past Medical History Medical History Altered mental status, unspecified Benign essential hypertension BMI 34.0-34.9,adult BMI 35.0-35.9,adult BMI 36.0-36.9,adult Chronic sinusitis Cognitive dysfunction Dyspnea on exertion Ear pressure Elevated homocysteine Encounter for routine adult health examination without abnormal findings Fibroid tumor H/O: HTN (hypertension) Hearing loss Hearing loss in right ear Hyperlipidemia Hypothyroidism (acquired) Left-sided thoracic back pain Lung nodule Non compliance w medication regimen On senior care drug therapy Osteoporosis Pre-diabetes Reactive airway disease Vitamin B deficiency Vitamin D deficiency Surgical History Surgical History Surgical history unknown Family History Family History Sibling Patient's sister is in good health Patient's brother is in good health Dementia Father Family history of cardiovascular disease Acute myocardial infarction Mother Family history of malignant neoplasm Family history of malignant neoplasm of breast in first degree relative Social History Social History Smoking packs per day: 1 Smoking cigarettes per day: 20.0 Years smoked: 30 Smoking pack-years: 30.00 Smoking status: Former smoker Alcohol intake: never Gender identity (if verbalized by the patient): Female Exam Narrative: General appearance: Well-developed, well-nourished, in pain, poor historian Skin: Normal color Head: Normocephalic, nontraumatic Eyes: Clear conjunctiva ENT: Oropharynx normal, ears normal, nose normal Neck: Supple, nontender Chest and respiratory: Airway patent, no respiratory distress, no accessory muscle use, severe tenderness right chest, no bruises, no swelling, no rash, breast augmentation bilaterally Heart: Regular rate/rhythm Abdomen: Soft, nontender, no organomegaly, quiet bowel sounds Vascular: Normal peripheral pulses, normal capillary refill. Musculoskeletal: Normal range of motion, nontender back Neurologic: Alert and oriented to her name and age only,
--- NOTE | 2021-11-03 14:12 | PCCCNOTE ---
Pt and family now agreeable to short (2-3 week) in SNF to get pain control and therapy so to go home safely. PASSR done in ED. Pt needs PT/OT eval and has [facility] MCR. Dr. Gramajo to place in obs for pain control while placement arranged. Family stated that preferred facility would be [facility]. Family friend will take care of pt dog while in placement.
--- NOTE | 2021-11-03 17:38 | ADMGEN ---
This patient, Breonna London, was admitted to Medical Room 343-01. Patient/family oriented to hospital policies and general routines including ID bracelet, bed and alarms, visiting hours, pain management, procedures, bathroom and other care routines, personal items, smoking policy, room service/diet, and visiting hours. Information on how to activate the Rapid Response Team has been discussed. Patient/Family are encouraged to report perceived risks to care and to ask questions if they do not understand what they are told or what they should do.
--- NOTE | 2021-11-03 19:56 | PM.IMHP ---
H&P: HPI History of Present Illness Date/Time: Patient was placed observation status for expected length of stay less than 23 hours for management, will plan to re-evaluate tomorrow for improvement. 11/03/21 19:56 Chief Complaint: Right-sided pain Narrative: Ms London who is an 81-year-old female who presented emergency room with complaints of right-sided chest pain. Patient lives alone and was brought in via ambulance with the inability to move today because of pain on the right side of her chest. I am unable to get any type of history from the patient secondary to underlying dementia and she was recently given morphine. Patient does have a friend at bedside that is helping with history. Patient had told the emergency room that she fell approximately 2 weeks ago and hit her right side. Patient's friend states that she believes patient fell yesterday because patient was not complaining anything till yesterday afternoon. Today patient was unable to get out of bed and her friend came over to certified ophthalmic assistant was unable to and called EMS. Upon evaluation in emergency room patient was noted to have acute fractures of right 4th through 7th rib. Review of Systems Review of Systems: I am unable to obtain a full review of systems secondary to patient's underlying dementia and has been recently given morphine and cannot answer questions appropriately. 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 Osteoporosis Pre-diabetes Reactive airway disease Vitamin B deficiency Vitamin D deficiency Surgical History Surgical History Surgical history unknown Family History Family History Sibling Patient's sister is in good health Patient's brother is in good health Dementia Father Family history of cardiovascular disease Acute myocardial infarction Mother Family history of malignant neoplasm Family history of malignant neoplasm of breast in first degree relative Social History Social History Smoking packs per day: 1 Smoking cigarettes per day: 20.0 Years smoked: 30 Smoking pack-years: 30.00 Smoking status: Unknown if ever smoked Alcohol intake: unknown Substance use: unknown Gender identity (if verbalized by the patient): Female Spiritual care concerns: No Meds Home Medications and Allergies Home Medications Medication Instructions Recorded Confirmed Type levothyroxine 75 mcg tablet 75 mcg PO DAILY #90 tablet 12/19/20 11/03/21 Rx donepezil 10 mg tablet 10 mg PO QHS #30 tablet 08/24/21 11/03/21 Rx rosuvastatin 10 mg tablet 10 mg PO DAILY #90 tablet 10/28/21 11/03/21 Rx Allergies Allergy/AdvReac Type Severity Reaction Status Date / Time KYLAH Inhibitors Allergy Unknown Cough Verified 06/17/21 10:16 Vital Signs Vital Signs - 24 hr 11/03/21 08:25 11/03/21 08:47 11/03/21 09:02 Temperature 36.9 C Pulse Rate 81 67 67 Respiratory Rate 20 18 18 Blood Pressure 171/84 H 162/91 H 158/80 H Pulse Oximetry 97 93 93 11/03/21 09:17 11/03/21 09:18 11/03/21 09:21 Temperature Pulse Rate 71 72 77 Respiratory Rate 21 H 22 H 18 Blood Pressure 147/109 H 168/107 H 168/107 H Pulse Oximetry 94 95 94 11/03/21 11:02 11/03/21 12:17 11/03/21 13:01 Temperature 36.4 C Pulse Rate 67 75 66 Respirator
[2021-11-03] MEDS: DONEPEZIL HCL 10 MG TABLET PO (20:55)
[2021-11-03] MEDS: HEPARIN SODIUM 5,000 UNITS/ML VIAL 5000 UNITS SUB-Q (20:55)
[2021-11-04] MEDS: ONDANSETRON INJ 4 MG/2 ML VIAL IV PUSH ×2 (00:37→06:01)
[2021-11-04 04:03] VITALS: BP 128/84; PULSE 75; RESP 20; TEMP 35.8; O2SAT 100
[2021-11-04] MEDS: LEVOTHYROXINE SODIUM 75 MCG TABLET PO (05:56)
[2021-11-04] MEDS: HYDROcodone/acetaminophen (*CRX) 5-325 MG TABLET 1 TAB PO (06:11)
[2021-11-04 08:35] VITALS: O2SAT 99
[2021-11-04] MEDS: HEPARIN SODIUM 5,000 UNITS/ML VIAL 5000 UNITS SUB-Q ×2 (08:41→20:09)
[2021-11-04] MEDS: ROSUVASTATIN 10 MG TABLET PO (08:41)
[2021-11-04 14:00] VITALS: BP 136/92; PULSE 75; RESP 18; TEMP 37.1; O2SAT 99
--- NOTE | 2021-11-04 14:32 | PM.IMPN ---
Progress Note: A&P Assessment and Plan (1) Closed rib fracture: Qualifiers: Encounter type: subsequent encounter Fracture healing: with nonunion Laterality: right Rib fracture type: multiple ribs Qualified Code(s): S22.41XK - Multiple fractures of ribs, right side, subsequent encounter for fracture with nonunion Code(s): S22.39XA - Fracture of one rib, unspecified side, initial encounter for closed fracture Status: Acute Assessment and Plan: attempt to keep patient's pain controlled with oral [place]. Patient did receive morphine and was quite confused with it. Also have PT/OT to evaluate and treat patient. (2) Altered mental status, unspecified: Qualifiers: Altered mental status type: unspecified Qualified Code(s): R41.82 - Altered mental status, unspecified Code(s): R41.82 - Altered mental status, unspecified Status: Acute Assessment and Plan: Per patient's friend this is baseline for patient and she is quite confused at times. Patient's friend in brother do not feel that it is safe for patient to live on her own any longer. looking for fdc placement so PT/OT have been consulted for evaluation treatment and care coordination has been consult. (3) Generalized weakness: Code(s): R53.1 - Weakness Status: Acute Assessment and Plan: PT/OT have been consult and do appreciate further recommendations. Subjective Date/time seen: 11/04/21 14:32 Patient was evaluated this morning. Alert her home care she reports rare concerns, or informed her that she has fractured ribs. Patient states that she has fallen multiple times without not remember mantle check fracture ribs. She is confused or shortness I want what month with her. [facility] PT/OT continued to treat. No acute concerns overnight reported by the RN. Review of Systems Review of Systems: All systems reviewed & are unremarkable except as noted in HPI and below Exam Narrative: Constitutional: Patient is well-nourished in no acute distress. Patient is alert and is oriented to self only HEENT: Moist mucous membranes. No scleral icterus. No lymphadenopathy. Neck: No carotid bruits noted no JVD noted Lungs: Lung sounds are clear to auscultation bilaterally. No accessory muscle use. No rhonchi, rales, or wheezes noted. Cardiovascular: Apical pulse is regular rate and rhythm. S1-S2 noted, no S3 or S4 noted. No gallops, murmurs, or rubs noted. Abdomen: Soft, round, and nontender. No palpable masses. Extremities: No edema. Nontender. Skin: No rashes or lesions. Warm and dry. Skin is intact. Psychiatric: Cooperative, appropriate mood, and affect Objective Data Vital Signs Vital Signs: Vital Signs - 24 hr 11/03/21 14:37 11/03/21 14:45 11/03/21 15:01 Temperature Pulse Rate 72 80 72 Respiratory Rate 13 13 13 Blood Pressure 144/77 H 153/78 H Pulse Oximetry 97 97 100 11/03/21 15:15 11/03/21 15:16 11/03/21 15:21 Temperature Pulse Rate 78 77 88 Respiratory Rate 16 15 14 Blood Pressure 151/84 H 164/106 H Pulse Oximetry 95 95 95 11/03/21 15:22 11/03/21 15:23 11/03/21 16:34 Temperature 98.0 F 98.0 F Pulse Rate 85 83 83 Respiratory Rate 17 16 16 Blood Pressure 171/81 H 171/81 H 171/81 H Pulse Oximetry 95 94 94 11/03/21 17:04 11/03/21 19:39 11/03/21 20:00 Temperature 98.2 F 96.7 F L Pulse Rate 75 80 Respiratory Rate 18 20 Blood Pressure 133/73 161/83 H Pulse Oximetry 97 99 93 11/03/21 20:36 11/04/21 04:03 11/04/21 08:35 Temperature 96.5 F L Pulse Rate 75 Respiratory Rate 20 Blood Pressure 128/84 Pulse Oximetry 92 100 99 Intake/Output Intake/Output: Intake & Output 11/01/21 11/02/21 11/03/21 11/04/21 23:59 23:59 23:59 23:59 Intake Total 1020 190 Output Total 200 Balance 820 190 Meds/Results Medications: Active Medications Generic Name Dose Route Start Last Admin Trade Na
[2021-11-04 20:00] VITALS: PULSE 75; RESP 18; O2SAT 97
[2021-11-04] MEDS: DONEPEZIL HCL 10 MG TABLET PO (20:09)
[2021-11-04 20:27] VITALS: BP 150/72; PULSE 75; RESP 18; TEMP 36.3; O2SAT 98
[2021-11-04 20:33] VITALS: O2SAT 97
[2021-11-05 05:39] VITALS: BP 155/84; PULSE 91; RESP 17; TEMP 36.2; O2SAT 92
[2021-11-05] MEDS: LEVOTHYROXINE SODIUM 75 MCG TABLET PO (05:44)
[2021-11-05 06:16] LABS: Basophils Percent Auto 0.2 % (0.2-1.2); Eosinophils Percent Auto 0.2 % (0-4.4); Hematocrit 46.3 % (37.0-47.0); Hemoglobin 14.8 g/dL (12.0-15.0); Immature Granulocyte Absolute 0.03 K/mm3 (0.00-0.031); Immature Granulocyte Percent A 0.3 % (0-0.5); Lymphocytes Absolute Auto 1.03 K/mm3 (0.9-3.2); Lymphocytes Percent Auto 10.4 % (18.3-44.2); Mean Corpuscular Hemoglobin 31.1 pg (26-34); Mean Corpuscular Volume 97.3 fl (80-100); Mean Platelet Volume 9.4 fl (7.4-10.4); Monocytes Absolute Auto 0.8 K/mm3 (0.1-0.6); Monocytes Percent Auto 7.6 % (2.6-8.5); Neutrophils Absolute Auto 8.1 K/mm3 (1.3-6.7); Neutrophils Percent Auto 81.3 % (45.5-73.1); Platelet Count Result 144 k/mm3 (150-375); Red Blood Count 4.76 M/mm3 (4.2-5.4); White Blood Count 9.9 K/mm3 (4.5-10.0)
[2021-11-05 06:32] LABS: Alanine Aminotransferase 19 U/L (4-35); Albumin Level 4.3 g/dL (3.5-5.1); Alkaline Phosphatase 83 U/L (38-126); Anion Gap 8 mmol/L (8-16); Aspartate Amino Transferase 36 U/L (14-36); Bilirubin,Total 0.9 mg/dL (0.2-1.3); Blood Urea Nitrogen 22 mg/dL (7-17); Calcium 8.2 mg/dL (8.4-10.2); Carbon Dioxide 27 mmol/L (22-30); Chloride 101 mmol/L (98-107); Estimated CRCL calculation 58 ml/min; Estimated Glomerular Filt Rate > 60; Glucose 123 mg/dL (65-110); Potassium 4.1 mmol/L (3.4-5.0); Sodium 136 mmol/L (137-145)
[2021-11-05 08:00] VITALS: O2SAT 92
--- NOTE | 2021-11-05 08:27 | PCPTNOTE ---
Patient refused treatment this session. Patient reported she does not need it. Educated patient on the importance and benefits of therapy, patient continued to refuse.
[2021-11-05] MEDS: HEPARIN SODIUM 5,000 UNITS/ML VIAL 5000 UNITS SUB-Q (08:52)
[2021-11-05] MEDS: ROSUVASTATIN 10 MG TABLET PO (08:52)
[2021-11-05 11:12] VITALS: O2SAT 94
--- NOTE | 2021-11-05 11:21 | PM.DS ---
DS: Admitting Diagnosis Discharge Date 11/05/2021 Admitting Diagnosis Closed rib fracture 4-7 right side Altered mental status Physical debility DS: Discharge Diagnosis Discharge Diagnosis (1) Closed rib fracture: Qualifiers: Encounter type: subsequent encounter Fracture healing: with nonunion Laterality: right Rib fracture type: multiple ribs Qualified Code(s): S22.41XK - Multiple fractures of ribs, right side, subsequent encounter for fracture with nonunion Code(s): S22.39XA - Fracture of one rib, unspecified side, initial encounter for closed fracture Status: Acute Assessment and Plan: attempt to keep patient's pain controlled with oral [place]. Patient did receive morphine and was quite confused with it. Also have PT/OT to evaluate and treat patient. (2) Altered mental status, unspecified: Qualifiers: Altered mental status type: unspecified Qualified Code(s): R41.82 - Altered mental status, unspecified Code(s): R41.82 - Altered mental status, unspecified Status: Acute Assessment and Plan: Per patient's friend this is baseline for patient and she is quite confused at times. Patient's friend in brother do not feel that it is safe for patient to live on her own any longer. looking for m[facility] placement so PT/OT have been consulted for evaluation treatment and care coordination has been consult. (3) Generalized weakness: Code(s): R53.1 - Weakness Status: Acute Assessment and Plan: PT/OT have been consult and do appreciate further recommendations. Physical debility, muscle atrophy noted bilateral lower extremities DS: Summary Hospital Course Reason for hospitalization: Physical debility rib cage fracture Hospital Course: The patient is an 81-year-old female with a past medical history of hypertension, cognitive dysfunction, fibroid tumor, hyperlipidemia, hypothyroidism, 6 and osteoporosis. Patient presented to the emergency department with complaints of right-sided chest pain. Patient lives home alone was brought to the emergency department via ambulance with the inability to move due to pain to her chest. Patient was unable to provide an appropriate history at that time secondary to underlying dementia. The patient received a 1 time dose of morphine in the emergency department. A family friend at bedside was able to help provide history as well as EHR. Patient reportedly has fallen multiple times at home within the past 2 weeks. Patient's friend at the bedside believes that she fell yesterday however she was not complaining of issues at that time. Patient was unable to get out of bed independently and therefore her friend came over to sales assistant was able to call EMS. Upon evaluation in the emergency department labs and imaging were obtained. Patient WBC 7.1, hemoglobin 15.2, hematocrit 46.6, normal LFTs, troponins negative and chest x-ray revealed 4th through 7th rib fractures on the right. Patient was admitted for further physical therapy and occupational therapy assistance due to physical decompensation. The patient was alert to self and his compliance [place]. She is being discharged to a skilled facility. Status at Discharge Cognitive/behavioral status at discharge: Alert to self-baseline Functional status at discharge: uses cane/walker Overall status at discharge: patient is back to baseline Time Spent with Patient Time attestation: Total time spent providing and/or coordinating discharge services: Time spent: Greater than 30 minutes Exam Narrative: Constitutional: Patient is well-nourished in no acute distress. Patient is alert and is oriented to self only HEENT: Moist mucous membranes. No scleral icterus. No lymphadenopathy. Neck: No carotid bruits noted no JVD noted Lungs: Lung sounds are clear to auscultation bilaterally. No accessory muscle use. No rhonchi, rales, or wheezes noted. Cardiovascular: Apical pulse is regular rate
[2021-11-05 12:26] LABS: EDCOVIDSCREEN Negative (Negative)
[2021-11-05 13:47] VITALS: O2SAT 94
== END 2021-11-05 17:38 ==
LOC: ANHED 14:54 → ANH3MED 11-04 10:11
PROVIDERS: Admitting Provider Family Medicine; Emergency Provider Emergency Medicine; PCP Internal Medicine; Visit Provider Nurse Practitioner Family
DX: S22.41XA Multiple fractures of ribs, right side, initial encounter for closed fracture (principal); E53.9 Vitamin B deficiency, unspecified; E55.9 Vitamin D deficiency, unspecified; J32.9 Chronic sinusitis, unspecified; M81.0 Age-related osteoporosis without current pathological fracture; H91.91 Unspecified hearing loss, right ear; R53.1 Weakness; R73.03 Prediabetes; R41.82 Altered mental status, unspecified; F03.90 Unspecified dementia, unspecified severity, without behavioral disturbance, psychotic disturbance, mood disturbance, and anxiety; F09 Unspecified mental disorder due to known physiological condition; W19.XXXA Unspecified fall, initial encounter; Z20.822 Contact with and (suspected) exposure to COVID-19; Z87.891 Personal history of nicotine dependence
CPT/HCPCS: 36415; 70450; 71260; 72125; 74177; 80053; 81003; 82948; 83605; 83690; 84484; 85025; 87426; 93005; 96361; 96372; 96374; 96375; 97161; 97166; 97535; 99285; A9270; C9803; G0378; J1644; J2270; J2405; J7030; Q9967

== ENCOUNTER 2021-12-14 13:49 | Emergency (ER) | payer MEDICARE, SELFPAY ==
--- NOTE | ~2021-12-14 | XR_ITS ---
XR chest 2V DATE: 12/14/2021 14:27 INDICATION: Cough, shortness of breath TECHNIQUE: 2 views COMPARISON: 05/20/2015 PA and lateral chest 11/03/2021 CT chest abdomen pelvis FINDINGS: Heart size is within normal range. Is aortic calcification and unfolding. No hilar or media stinal enlargement. No pulmonary infiltrate or consolidation, pleural effusion or pulmonary vascular congestion or pneumo thorax is detected. Bilateral calcified breast implants. Prominent diffuse osteopenia. IMPRESSION: No active cardiopulmonary disease Reviewed, dictated and finalized at location A.
[2021-12-14 13:59] VITALS: BP 163/83; PULSE 90; RESP 24; TEMP 37.1; O2SAT 88; O2SAT 95
--- NOTE | 2021-12-14 14:00 | ED.URI ---
HPI - URI/Sore Throat General Chief Complaint: Upper Respiratory Infection Stated Complaint: nasal congestion Time Seen by Provider: 12/14/21 14:00 Source: patient and family Mode of arrival: ambulatory Limitations: no limitations History of Present Illness HPI Narrative: 81-year-old female presents with friend with complaint of waking up with headache, fatigue, congestion this morning. States not really feeling well . Afebrile. Patient has slightly labored breathing but reports that she has not short of breath. Ports that labored breathing is related to wearing a mask. She is a daily smoker. She has had a cough for approximately 1 month. States that cough started 1 week after a fall that resulted in 4 rib fractures. She saw her PCP for cough and was told no pneumonia. Patient has been vaccinated for COVID. Denies nausea vomiting diarrhea. All systems reviewed and negative except as noted above. Related Data Home Medications Medication Instructions Recorded Confirmed donepezil 10 mg PO BID 12/14/21 12/14/21 levothyroxine 75 mcg PO DAILY 12/14/21 12/14/21 rosuvastatin 10 mg PO DAILY 12/14/21 12/14/21 Allergies Allergy/AdvReac Type Severity Reaction Status Date / Time KYLAH Inhibitors Allergy Unknown Cough Verified 12/14/21 14:16 Review of Systems Review of Systems: CONSTITUTIONAL: Denies fever, chills, or sweats. EYES: Denies visual changes, redness, or discharge. ENT: Denies rhinorrhea, sore throat, or otalgia. Reports nasal congestion. CARDIOVASCULAR: Denies chest pain, palpitations, or edema. RESPIRATORY: Reports cough. Denies dyspnea. GASTROINTESTINAL: Denies abdominal pain, nausea, vomiting, or diarrhea. GENITOURINARY: Denies dysuria or hematuria. SKIN: Denies rash or itching. MUSCULOSKELETAL: Denies back pain, joint pain, or myalgia. NEUROLOGIC: Reports headache. Denies numbness, or weakness. PSYCHIATRIC: Denies anxiety or depression. All other systems reviewed are negative, except as documented in HPI. 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 Osteoporosis Pre-diabetes Reactive airway disease Vitamin B deficiency Vitamin D deficiency Surgical History Surgical History Surgical history unknown Family History Family History Sibling Patient's sister is in good health Patient's brother is in good health Dementia Father Family history of cardiovascular disease Acute myocardial infarction Mother Family history of malignant neoplasm Family history of malignant neoplasm of breast in first degree relative Social History Social History Smoking packs per day: 1 Smoking cigarettes per day: 20.0 Years smoked: 30 Smoking pack-years: 30.00 Smoking status: Unknown if ever smoked Alcohol intake: unknown Substance use: unknown Gender identity (if verbalized by the patient): Female Spiritual care concerns: No Comments At time of signature, agree with nursing past medical, surgical, social and family history. There is no relevant family history pertinent to the presenting complaint. Exam Narrative: GENERAL: This is a well-nourished, well-developed patient, in no apparent distress. HEAD: normocephalic, atraumatic. EYES: PERRL. Sclera clear/white. Vision is g
[2021-12-14 14:02] VITALS: RESP 20; O2SAT 94
[2021-12-14 14:34] VITALS: RESP 20; O2SAT 92
[2021-12-14 14:35] VITALS: RESP 22; O2SAT 94
--- NOTE | 2021-12-14 14:42 | PC.NURSE ---
1434- VS pt was being ambulated
--- NOTE | 2021-12-14 14:43 | PC.NURSE ---
1435- Pt is resting, conversing with friend.
[2021-12-14 15:04] VITALS: RESP 21; O2SAT 94
== END 2021-12-14 15:04 | disposition home or self-care (01) ==
PROVIDERS: Emergency Provider Nurse Practitioner Family; PCP Internal Medicine
DX: U07.1 COVID-19 (principal); I10 Essential (primary) hypertension; E78.5 Hyperlipidemia, unspecified; E03.9 Hypothyroidism, unspecified; M81.0 Age-related osteoporosis without current pathological fracture; R73.03 Prediabetes; F17.210 Nicotine dependence, cigarettes, uncomplicated
CPT/HCPCS: 71046; 87426; 87804; 99213; C9803; G0463

== ENCOUNTER 2021-12-17 00:35 | Observation (INO) | payer MEDICARE, SELFPAY ==
[2021-12-17] VITALS (13 sets, daily range): BP systolic 110–144; BP diastolic 56–80; PULSE 61–84; RESP 16–20; TEMP 36.1–37.2; O2SAT 81–98; BMI 32.5
--- NOTE | ~2021-12-17 | XR_ITS ---
EXAMINATION: XR chest 1V portable DATE: 12/17/2021 03:14 INDICATION: Hypoxia. Left breast pain. Cough. TECHNIQUE: A single frontal view of the chest was obtained. COMPARISON: Chest 2 views 12/14/2021, chest CT 12/17/2021 FINDINGS: There is mild atelectasis in the lower lung zones. There are lucencies in the lungs, consis tent with emphysema. No pleural effusion or pneumothorax. The heart size is normal. Breast implants a re noted. IMPRESSION: 1. Mild atelectasis in the lower lung zones. 2. Emphysema. Reviewed, dictated and finalized at location A.
--- NOTE | ~2021-12-17 | CT_ITS ---
EXAMINATION: CTA chest PE protocol DATE: 12/17/2021 02:16 INDICATION: Left breast pain. COVID-19 positive. TECHNIQUE: Computed tomography angiography (CTA) of the chest was performed with 100 mL Omnipaque-350 intravenous contrast timed to evaluate the pulmonary arteries. Coronal maximum intensity projection 3D-reconstructions were created by the technologist. Automated exposure control and iterative reconst ruction technique were employed. The dose-length product was 874.89 mGy-cm. COMPARISON: Chest CT 11/03/2021 FINDINGS: There is mild emphysema. There is mild atelectasis in the lungs bilaterally. No pleural eff usion. The heart size is normal. No pericardial effusion. There is no pulmonary embolus. There are cy sts in the liver measuring up to 2.1 cm. There is a 1.6 cm cyst in left kidney. There are bilateral b reast implants. There are acute fractures of left fourth and fifth ribs. There is an old healed fract ure of left fourth rib. There are healing fractures of right fourth-seventh ribs. There is mild thora cic spondylosis. There is mild chronic height loss of multiple vertebral bodies. IMPRESSION: 1. Acute left fourth and fifth rib fractures, new from 11/03/2021. 2. No pulmonary embolus. Sensitivity is mildly decreased by motion artifact. 3. Mild emphysema. Reviewed, dictated and finalized at location A.
--- NOTE | 2021-12-17 01:02 | ECG_ITS ---
Measurements Intervals [place] Rate: 63 P: 21 [place]: 146 QRS: -26 QRSD: 100 T: 17 QT: 445 QTc: 456 Interpretive Statements SINUS RHYTHM BORDERLINE LEFT AXIS DEVIATION [QRS AXIS < -20] INCOMPLETE RIGHT BUNDLE BRANCH BLOCK [90+ ms QRS DURATION, TERMINAL R IN V1/V2, 40+ ms S IN I/aVL/V4/V5/V6] MODERATE T-WAVE ABNORMALITY, CONSIDER ANTERIOR ISCHEMIA [-0.1+ mV T WAVE IN V3/V4] COMPARED TO ECG 11/03/2021 08:34:51 NO SIGNIFICANT CHANGE Electronically Signed On 12-17-2021 20:47:43 CDT by Cindy Cartagena M.D.
--- NOTE | 2021-12-17 01:03 | ED.CHESTPAIN ---
HPI - Chest Pain General Chief Complaint: Chest Pain <OMAR Marie Last Filed: 12/17/21 04:08> Stated Complaint: left breast pain, golf ball size lump <OMAR Marie Last Filed: 12/17/21 04:08> Time Seen by Provider: 12/17/21 00:44 <OMAR Marie Last Filed: 12/17/21 04:08> Source: patient <OMAR Marie Last Filed: 12/17/21 04:08> Mode of arrival: EMS <OMAR Marie Last Filed: 12/17/21 04:08> Limitations: dementia <OMAR Marie Last Filed: 12/17/21 04:08> History of Present Illness HPI narrative: Patient is an 81-year-old female who presents the ED via EMS with report of left breast pain. Per patient's records, she was recently diagnosed with COVID-19 on 12/14. Currently on Paxlovid. Tonight, approximately 1 hour prior to arrival she was woken up from her sleep with severe pain in her left lateral breast. Patient does have a history of breast implants greater than 15 years ago which are calcified. She denies any noticeable physical changes in her breasts. No recent fall, heavy lifting, strenuous activity. Denies any chest pain, trouble breathing, nausea, vomiting, abdominal pain. Has not taken anything for pain. <OMAR Marie Last Filed: 12/17/21 04:08> Related Data Home Medications: Home Medications Medication Instructions Recorded Confirmed donepezil 10 mg PO BID 12/14/21 12/14/21 levothyroxine 75 mcg PO DAILY 12/14/21 12/14/21 rosuvastatin 10 mg PO DAILY 12/14/21 12/14/21 <OMAR Marie Last Filed: 12/17/21 04:08> Allergies/Adverse Reactions: Allergies Allergy/AdvReac Type Severity Reaction Status Date / Time KYLAH Inhibitors Allergy Unknown Cough Verified 12/14/21 14:16 <OMAR Marie Last Filed: 12/17/21 04:08> Review of Systems Review of Systems: CONSTITUTIONAL: Denies fever, chills. BREAST: Reports pain to left lateral breast. Denies nipple discharge. CARDIOVASCULAR: Denies chest pain. RESPIRATORY: Denies cough or dyspnea. GASTROINTESTINAL: Denies abdominal pain, nausea, vomiting. MUSCULOSKELETAL: Denies back pain. <Jenna Odell PA-C - Last Filed: 12/17/21 04:08> All systems reviewed & are unremarkable except as noted in HPI and below <Jenna Odell PA-C - Last Filed: 12/17/21 04:08> [facility] Past Medical History Medical History: Medical History Altered mental status, unspecified Benign essential hypertension BMI 34.0-34.9,adult BMI 35.0-35.9,adult BMI 36.0-36.9,adult Chronic sinusitis Cognitive dysfunction Dyspnea on exertion Ear pressure Elevated homocysteine Encounter for routine adult health examination without abnormal findings Fibroid tumor H/O: HTN (hypertension) Hearing loss Hearing loss in right ear Hyperlipidemia Hypothyroidism (acquired) Left-sided thoracic back pain Lung nodule Non compliance w medication regimen 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 Osteoporosis Pre-diabetes Reactive airway disease Vitamin B deficiency Vitamin D deficiency <Jenna Odell PA-C - Last Filed: 12/17/21 04:08> Surgical History Surgical History: Surgical History Surgical history unknown <Jenna Odell PA-C - Last Filed: 12/17/21 04:08> Family History Family History: Family History Sibling Patient's sister is in good health Patient's brother is in good health Dementia Father Family history of cardiovascular disease Acute myocardial infarction Mother Family history of malignant neoplasm Family history of malignant neoplasm of breast in first degree relative <Jenna Odell PA-C - Last Filed: 12/17/21 04:08> Social History Social History: Social History Smoking packs per day: 1 Smoking cigarettes per day: 20.0 Y
[2021-12-17] MEDS: MORPHINE SULFATE (*CRX) 4 MG/ML INJ 2 MG IV PUSH (01:37)
[2021-12-17 01:38] LABS: Basophils Percent Auto 0.3 % (0.2-1.2); Eosinophils Absolute Auto 0.1 K/mm3 (0-0.3); Hematocrit 44.1 % (37.0-47.0); Hemoglobin 14.3 g/dL (12.0-15.0); Immature Granulocyte Absolute 0.04 K/mm3 (0.00-0.031); Immature Granulocyte Percent A 0.6 % (0-0.5); Lymphocytes Absolute Auto 2.89 K/mm3 (0.9-3.2); Lymphocytes Percent Auto 41.5 % (18.3-44.2); Mean Corpuscular HGB Conc 32.4 g/dl (32-36); Mean Corpuscular Hemoglobin 30.7 pg (26-34); Mean Corpuscular Volume 94.6 fl (80-100); Mean Platelet Volume 10.4 fl (7.4-10.4); Monocytes Absolute Auto 0.9 K/mm3 (0.1-0.6); Monocytes Percent Auto 13.4 % (2.6-8.5); Neutrophils Percent Auto 43.2 % (45.5-73.1); Platelet Count Result 169 k/mm3 (150-375); Red Blood Count 4.66 M/mm3 (4.2-5.4); Red Cell Distribution Width 13.7 % (11.5-14.5)
[2021-12-17] MEDS: ONDANSETRON INJ 4 MG/2 ML VIAL IV PUSH (01:38)
[2021-12-17 01:49] LABS: Alanine Aminotransferase 23 U/L (4-35); Albumin Level 3.9 g/dL (3.5-5.1); Alkaline Phosphatase 90 U/L (38-126); Anion Gap 8 mmol/L (8-16); Aspartate Amino Transferase 45 U/L (14-36); Bilirubin,Total 0.7 mg/dL (0.2-1.3); Blood Urea Nitrogen 26 mg/dL (7-17); Calcium 8.3 mg/dL (8.4-10.2); Carbon Dioxide 26 mmol/L (22-30); Chloride 97 mmol/L (98-107); Estimated CRCL calculation 34 ml/min; Estimated Glomerular Filt Rate 39; Glucose 111 mg/dL (65-110); Potassium 3.4 mmol/L (3.4-5.0); Sodium 131 mmol/L (137-145)
[2021-12-17 02:01] LABS: Troponin I < 0.012 ng/mL (0.000-0.034)
[2021-12-17] MEDS: SODIUM CHLORIDE 0.9% IV 1,000 ML 999 ML IV CONT (02:19)
[2021-12-17] MEDS: KETOROLAC 30 MG/ML VIAL (*BKC) IV PUSH (03:10)
[2021-12-17] MEDS: SODIUM CHLORIDE 0.9% IV 1,000 ML 100 ML IV CONT ×2 (04:20→17:32)
--- NOTE | 2021-12-17 05:56 | ADMGEN ---
0452 This patient, Breonna London, was admitted to 3 [facility] Surg Room 304-02. Patient/family oriented to hospital policies and general routines including ID bracelet, bed and alarms, visiting hours, pain management, procedures, bathroom and other care routines, personal items, smoking policy, room service/diet, and visiting hours. Information on how to activate the Rapid Response Team has been discussed. Patient/Family are encouraged to report perceived risks to care and to ask questions if they do not understand what they are told or what they should do.
[2021-12-17] MEDS: ENOXAPARIN 40 MG/0.4 ML SYRINGE SUB-Q (09:08)
--- NOTE | 2021-12-17 10:30 | PM.IMHP ---
H&P: HPI History of Present Illness Date/Time: 12/17/21 1030 Chief Complaint: Left Breast pain Narrative: Patient is an 81-year-old female with a past medical history of fibrocystic disease, osteoporosis, hypertension who presented the ED with complaints of left breast pain. Patient was recently diagnosed with COVID-19 has been on monoclonal antibodies. Patient is unaware of what happened to her. I explained to her that she had broken ribs on the left side and she said all the possible when I followed the porch 2-3 months ago. However she would just repeat that she did not know what was going on or what she did. She stated that her pain is about a 5/10. She stated that it hurts when she moves or breathes. She denies any urinary issues, chest pain, shortness of breath, nausea, vomiting, diarrhea, constipation, sweats, fevers, chills. Patient stated that she feels fine however is continuously jerking from the pain on her left side. CTA showed ribs 3 and 4 acutely fractured. Patient does not know what happened or how that happened. Patient is A&O x 1. She told me that it was 2012 and that she did not know who the president was. She stated that When you don't work, none of that matters anymore. She seems to be stable. Renal function is elevated from baseline. Review of Systems Review of Systems: All systems reviewed & are unremarkable except as noted in HPI and below PMFSH Past Medical History Medical History Benign essential hypertension Chronic sinusitis Cognitive dysfunction Elevated homocysteine Fibroid tumor Hyperlipidemia Hypothyroidism (acquired) Lung nodule Osteoporosis Pre-diabetes Reactive airway disease Surgical History Surgical History H/O breast augmentation H/O: hysterectomy Family History Family History Sibling Patient's sister is in good health Patient's brother is in good health Dementia Father Family history of cardiovascular disease Acute myocardial infarction Mother Family history of malignant neoplasm Family history of malignant neoplasm of breast in first degree relative Social History Social History (Updated 12/17/21 @ 13:20 by CAROL Hartmann) Social History: Patient lives by herself and has a dog. 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 [employer] Gender identity (if verbalized by the patient): Female Sexual Orientation (if Verbalized by the Patient): Straight or Heterosexual Spiritual care concerns: No Agree to blood products: Yes Meds Home Medications and Allergies Home Medications Medication Instructions Recorded Confirmed Type albuterol sulfate 2 puff INHALATION QID PRN #8.5 g 12/14/21 12/17/21 Rx benzonatate 200 mg PO TID PRN #20 cap 12/14/21 12/17/21 Rx donepezil 10 mg PO BID 12/14/21 12/17/21 History inhalational spacing device #1 ea 12/14/21 12/17/21 Rx [Aerochamber Plus Z Stat] levothyroxine 75 mcg PO DAILY 12/14/21 12/17/21 History nirmatrelvir-ritonavir [Paxlovid See Rx Instructions .ROUTE 12/14/21 12/17/21 Rx (EUA)] .COMPLEX #15 tablet rosuvastatin 10 mg PO DAILY 12/14/21 12/17/21 History Allergies Allergy/AdvReac Type Severity Reaction Status Date / Time KYLAH Inhibitors Allergy Unknown Cough Verified 12/14/21 14:16 Vital Signs Vital Signs - 24 hr 12/17/21 00:50 12/17
[2021-12-17] MEDS: HYDROcodone/acetaminophen (*CRX) 5-325 MG TABLET 1 TAB PO ×2 (11:14→18:29)
--- NOTE | 2021-12-17 13:47 | PC.NURSE ---
On 12/17/21, the student, [Batool Urias ], provided care and completed [facility] documentation on this patient. I have reviewed the student's documentation and agree with the findings.
--- NOTE | 2021-12-17 14:06 | PC.NURSE ---
On 12/17/21, the student, [ Batool Urias], provided care and completed [facility] documentation on this patient. I have reviewed the student's documentation and agree with the findings.
--- NOTE | 2021-12-17 21:26 | PC.NURSE ---
Addendum entered by Karol Peoples RN 12/17/21 21:28: No order given at this time, states will look at pt's chart. Original Note: Place call to Farheen Sanchez, informed that pt is c/o left side rib pain. Pt rates pain a 05/31. Pt received [place] at 1829.
[2021-12-17] MEDS: LIDOCAINE 5% PATCH 1 PATCH TRANSDERM (21:55)
[2021-12-18] MEDS: SODIUM CHLORIDE 0.9% IV 1,000 ML 100 ML IV CONT (05:20)
[2021-12-18] MEDS: HYDROcodone/acetaminophen (*CRX) 5-325 MG TABLET 1 TAB PO ×2 (05:25→14:08)
[2021-12-18] MEDS: LEVOTHYROXINE SODIUM 75 MCG TABLET PO (05:26)
[2021-12-18 05:47] VITALS: BP 145/77; PULSE 78; RESP 18; TEMP 37.3; O2SAT 92
[2021-12-18 06:26] LABS: Basophils Percent Auto 0.4 % (0.2-1.2); Eosinophils Absolute Auto 0.1 K/mm3 (0-0.3); Eosinophils Percent Auto 2.8 % (0-4.4); Hematocrit 42.3 % (37.0-47.0); Hemoglobin 13.5 g/dL (12.0-15.0); Immature Granulocyte Absolute 0.02 K/mm3 (0.00-0.031); Immature Granulocyte Percent A 0.4 % (0-0.5); Lymphocytes Absolute Auto 1.51 K/mm3 (0.9-3.2); Lymphocytes Percent Auto 30.3 % (18.3-44.2); Mean Corpuscular HGB Conc 31.9 g/dl (32-36); Mean Corpuscular Hemoglobin 31.1 pg (26-34); Mean Corpuscular Volume 97.5 fl (80-100); Mean Platelet Volume 9.9 fl (7.4-10.4); Monocytes Absolute Auto 0.6 K/mm3 (0.1-0.6); Neutrophils Absolute Auto 2.7 K/mm3 (1.3-6.7); Neutrophils Percent Auto 55.1 % (45.5-73.1); Platelet Count Result 157 k/mm3 (150-375); Red Blood Count 4.34 M/mm3 (4.2-5.4); Red Cell Distribution Width 13.7 % (11.5-14.5)
[2021-12-18 06:40] LABS: Alanine Aminotransferase 21 U/L (4-35); Albumin Level 3.6 g/dL (3.5-5.1); Alkaline Phosphatase 77 U/L (38-126); Anion Gap 4 mmol/L (8-16); Aspartate Amino Transferase 38 U/L (14-36); Bilirubin,Total 0.4 mg/dL (0.2-1.3); Blood Urea Nitrogen 12 mg/dL (7-17); Calcium 7.9 mg/dL (8.4-10.2); Carbon Dioxide 27 mmol/L (22-30); Chloride 103 mmol/L (98-107); Estimated CRCL calculation 51 ml/min; Estimated Glomerular Filt Rate > 60; Glucose 98 mg/dL (65-110); Potassium 3.9 mmol/L (3.4-5.0); Sodium 134 mmol/L (137-145)
[2021-12-18 08:00] VITALS: BP 140/68; PULSE 74; RESP 18; TEMP 37.2; O2SAT 91
[2021-12-18] MEDS: LIDOCAINE 5% PATCH 1 PATCH TRANSDERM (08:36)
[2021-12-18] MEDS: CALCIUM CARBONATE (OSCAL) 500 MG TABLET PO ×2 (08:36→18:14)
[2021-12-18] MEDS: ENOXAPARIN 40 MG/0.4 ML SYRINGE SUB-Q (08:36)
[2021-12-18] MEDS: ROSUVASTATIN 10 MG TABLET PO (08:36)
[2021-12-18 12:00] VITALS: BP 140/64; PULSE 76; RESP 18; TEMP 37.1; O2SAT 92
--- NOTE | 2021-12-18 15:15 | PM.DS ---
DS: Admitting Diagnosis Discharge Date 12/18/21 1600 Admitting Diagnosis Rib fractures DS: Discharge Diagnosis Discharge Diagnosis (1) Rib fractures: Code(s): S22.49XA - Multiple fractures of ribs, unspecified side, initial encounter for closed fracture Status: Acute Assessment and Plan: 81-year-old female with history of severe dementia, hypothyroidism hypertension, and prior rib fractures on 11/03, here for left-sided breast pain. CTA shows rib fracture of the left 4-5th new from 11/03/21. Troponin normal, EKG showing LAD, incomplete RBBB, moderate T-wave abnormality, without significant change from EKG on 11/03/21. Patient had no memory of what happened to her. Patient had been staying at half-way care facility up until 12/11, at which point, her son signed her out AMA and returned her to her home where she had been living alone. Patient likely fell. She had significant bruising along her left forearm. Patient A&O x 1 and asked repeatedly why her chest hurt during my exam of her. Continue Tylenol PRN. PT evaluated this patient and but she is not safe to discharge home alone due to poor cognition at baseline and being a high risk of falling. OT evaluated this patient and opined she would benefit from skilled OT services to increase safe participation in ADLs. Care coordination has arranged placement at [facility] [place]. Advise care team to observe for changes in patient's pain levels and return if worsening of symptoms. (2) COVID-19: Code(s): U07.1 - COVID-19 Status: Acute Assessment and Plan: Tested positive 12/14/21, vaccinated with moderna x2, currently asymptomatic and without any supplemental oxygen requirements. Chest xray mild atelectasis in lower lung zones, emphysema. Supportive care only at this time. Avoid contact with others until 12/24, wear a mask when out in public. (3) Hypothyroidism (acquired): Code(s): E03.9 - Hypothyroidism, unspecified Status: Acute Assessment and Plan: TSH 2.620 Continue home levothyroxine 75 mcg Adjust therapy as indicated (4) Benign essential hypertension: Code(s): I10 - Essential (primary) hypertension Status: Acute Assessment and Plan: Current BP 140/64, patient previously prescribed amlodipine, however stopped this medication in May 23 for other reasons. Recommend patient follow up with primary care. (5) OSMIN (acute kidney injury): Code(s): N17.9 - Acute kidney failure, unspecified Status: Acute Assessment and Plan: Creatinine is normalized during her stay here with IV rehydration, with slight elevation upon admission (1.3) Most likely related to dehydration. Continue to hydrate upon discharge. DS: Summary Hospital Course Reason for hospitalization: Acute Rib Fractures Hospital Course: See above for hospital course. Status at Discharge Overall status at discharge: patient is progressing back to baseline Time Spent with Patient Time attestation: Total time spent providing and/or coordinating discharge services:35 mins Time spent: Greater than 30 minutes Exam Narrative: GENERAL APPEARANCE: Alert and oriented x 3, in no apparent distress. HEENT: PERRL, EOMI. Sclerae anicteric. Moist mucous membranes. NECK: Supple. No JVD or obvious carotid bruits. RESPIRATORY: Left-sided chest wall tenderness. Respirations are nonlabored. Breath sounds are equal and clear bilaterally. No wheezes, Rhonchi, or rales. CARDIOVASCULAR: Regular rate and rhythm with normal S1-S2. No murmurs, gallops, or rubs. GASTROINTESTINAL: Soft, flat, and benign. No mass, tenderness, guarding, or rebound. No organomegaly or hernia. Bowel sounds are present. SKIN: Warm, dry, well perfused. Good turgor. No lesions, nodules, or rashes noted. Warm and dry. No rash or lesions on limited exam. EXTREMITIES: No cyanosis, clubbing, or edema. Radial and
[2021-12-18 15:51] VITALS: BP 102/64; PULSE 71; RESP 18; TEMP 36.8; O2SAT 94
== END 2021-12-18 19:15 ==
LOC: ANHED 03:23 → ANH3MEDSUR 03:52
PROVIDERS: Nurse Practitioner; Physician Assistant; Admitting Provider Internal Medicine; Emergency Provider Family Medicine; PCP Internal Medicine; Visit Provider Internal Medicine
DX: S22.42XA Multiple fractures of ribs, left side, initial encounter for closed fracture (principal); U07.1 COVID-19; N17.9 Acute kidney failure, unspecified; I10 Essential (primary) hypertension; E78.5 Hyperlipidemia, unspecified; E03.9 Hypothyroidism, unspecified; E53.8 Deficiency of other specified B group vitamins; E55.9 Vitamin D deficiency, unspecified; H91.91 Unspecified hearing loss, right ear; M54.6 Pain in thoracic spine; M81.0 Age-related osteoporosis without current pathological fracture; R73.03 Prediabetes; R07.89 Other chest pain; R41.0 Disorientation, unspecified; R91.1 Solitary pulmonary nodule; F17.210 Nicotine dependence, cigarettes, uncomplicated; F03.90 Unspecified dementia, unspecified severity, without behavioral disturbance, psychotic disturbance, mood disturbance, and anxiety; Z79.899 Other long term (current) drug therapy; X58.XXXA Exposure to other specified factors, initial encounter
CPT/HCPCS: 36415; 71045; 71275; 80053; 83735; 84443; 84484; 85025; 93005; 96361; 96372; 96374; 96375; 97161; 97166; 99285; A9270; G0378; J1650; J1885; J2270; J2405; J7030; Q9967